=== PATIENT | male | born 1975 | race Caucasian/White ===

== ENCOUNTER 2018-10-25 10:29 | Outpatient (CLI) | payer BC ==
[2018-10-25 11:19] LABS: Free T4 (Free Thyroxine) 1.35 ng/dL (0.70-1.48); Thyroid Stimulating Hormone 1.2117 uIU/mL (0.35-4.94)
== END 2018-10-25 10:30 | disposition home or self-care (01) ==
LOC: LAB 10:29
PROVIDERS: ATTEND Family Medicine
DX: E03.9 Hypothyroidism, unspecified (principal)
CPT/HCPCS: 36415; 84439; 84443; 84481

== ENCOUNTER 2022-02-06 17:40 | Outpatient (CLI) | payer BC ==
[2022-02-06 18:41] LABS: Hemoglobin 16.5 g/dL (13.5-17.5); Mean Corpuscular HGB CONC 35.6 g/dL (32.0-36.0); Mean Corpuscular Volume 89.9 fl (81.2-95.1); Mean Platelet Volume 8.6 fl (7.4-10.4); Platelet Count 348 10x3/uL (150-450); Red Blood Cell (RBC) Count 5.15 10x6/uL (4.32-5.72); White Blood Cell (WBC) Count 8.1 10x3/uL (3.5-10.5)
[2022-02-06 18:45] LABS: Bilirubin Neg (Negative); Blood, Urine 10 (Negative); Clarity Clear (Clear); Glucose, Urine (Dipstick) Normal (Negative); Ketone, Urine Negative (Negative); Leukocyte Negative (Negative); Nitrite Negative (Negative); Protein, Urine (Dipstick) Negative (Neg-Trace); Urobilinogen Normal mg/dL (Less than 2)
[2022-02-06 18:53] LABS: Bacteria/HPF None Seen HPF (None Seen); RBC/HPF 0-3 HPF (0-3); Squamous Epithelial 0-3 HPF (0-3); WBC/HPF None Seen HPF (0-3)
[2022-02-06 18:54] LABS: INR-International Normal Ratio 1.1; PTT 26.8 sec (22.0-33.0); Prothrombin Time 11.4 sec (9.5-12.1)
[2022-02-06 18:58] LABS: Anion Gap 14 mmol/L (10-20); BUN (Urea Nitrogen) 15 mg/dL (8.9-20.6); Calc. Creatinine Clearance 0 mL/min (70-130); Calcium 9.6 mg/dL (7.8-10.44); Carbon Dioxide 28 mmol/L (22-29); Chloride 104 mmol/L (98-107); Estimated GFR 69; Glucose 91 mg/dL (70-105); Potassium 4.1 mmol/L (3.5-5.1); Sodium 142 mmol/L (136-145)
== END 2022-02-06 17:41 | disposition home or self-care (01) ==
LOC: LABBT 17:40
PROVIDERS: ATTEND Urology
DX: Z01.818 Encounter for other preprocedural examination (principal)
CPT/HCPCS: 80048; 81001; 85027; 85610; 85730; 87086; 93005; 93010

== ENCOUNTER 2022-02-09 11:52 | Day surgery (SDC) | payer BC ==
[2022-02-07 11:55] VITALS: BMI 27.1
[2022-02-09] MEDS ORDERED: fentaNYL PF 100 MCG/2 ML SYRINGE ONE (13:27)
[2022-02-09] MEDS ORDERED: Midazolam HCl 2 mg/2 ml Vial ONE (13:40)
[2022-02-09] MEDS ORDERED: Levofloxacin 500 mg/D5W 100 ml Premix Bag ONE (13:41)
[2022-02-09] MEDS ORDERED: Dexamethasone 20 MG/5 ML VIAL ONE (13:51)
[2022-02-09] MEDS ORDERED: Ondansetron PF 4 MG/2 ML Vial ONE (13:51)
[2022-02-09] MEDS ORDERED: PROPOFOL 200 MG/20 ML VIAL ONE (13:51)
[2022-02-09] MEDS ORDERED: Ketorolac Tromethamine 30 MG/ML VIAL ONE (13:51)
== END 2022-02-09 16:55 | disposition home or self-care (01) ==
LOC: SDC 11:52
PROVIDERS: ATTEND Urology
PROC: 0T768DZ Dilation of Right Ureter with Intraluminal Device, Via Natural or Artificial Opening Endoscopic (ICD-10-PCS; principal; 2022-02-09)
PROC: 0TC68ZZ Extirpation of Matter from Right Ureter, Via Natural or Artificial Opening Endoscopic (ICD-10-PCS; principal; 2022-02-09)
DX: N13.2 Hydronephrosis with renal and ureteral calculous obstruction (principal); E03.9 Hypothyroidism, unspecified; E78.5 Hyperlipidemia, unspecified; Z86.16 Personal history of COVID-19; Z87.891 Personal history of nicotine dependence; Z79.890 Hormone replacement therapy; Z79.899 Other long term (current) drug therapy
CPT/HCPCS: 82365; 88300; C1769; C2617; J1100; J1885; J1956; J2250; J2405; J2704